=== PATIENT | male | born 2005 | race Caucasian/White ===

== ENCOUNTER 2025-08-23 06:07 | Observation (INO) ==
--- NOTE | 2025-08-23 06:46 | Emergency Department Note ---
Impression & Plan Hyperglycemia, Newly diagnosed diabetes ED Provider Note Provider: Marlon Lima MD CHIEF COMPLAINT: Referred due to high blood sugars HISTORY OF PRESENT ILLNESS: Patient is a 19-year-old gentleman otherwise healthy presenting here today referred by outpatient [facility] doctor for evaluation of his blood sugar. Patient presents with his mother. He states has been a little bit thirsty and peeing a little bit more frequently but denies significant fatigue or breathing issues or fever or chills. Denies abdominal pain or nausea or vomiting or chest pain. 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 Was called and looked in the portal and told that his blood sugar was significantly elevated. Denies a history of similar. Does not have a glucometer at home. 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 NECK: Trachea midline. ENT: Mucous membranes pink and moist. LUNGS: Airway patent. No retractions or tachypnea HEART: Regular rate and rhythm. No chest wall tenderness ABDOMEN: Soft and non-tender, without guarding or rebound. SKIN: Acyanotic, warm, dry, without rashes EXTREMITIES: Without swelling, tenderness or deformity NEUROLOGICAL: No focal deficits. No aphasia. No facial droop or slurred speech. Ambulatory. Patient's laboratory studies and imaging reviewed. Differential includes Infection, dehydration, metabolic abnormality, hypo/hyperglycemia, electrolyte disturbance, anemia, toxicologic, neurologic, as well as other pathologies. IMPRESSION/MEDICAL DECISION MAKING: Patient well-appearing in no distress. Not tachypneic. Vitals reassuring and denies other infectious symptoms. Does report some polyuria and polydipsia. Outpatient testing results reviewed with elevated hemoglobin 10.4 from yesterday as well as a one-time glucose of 548 and a urine showing significant glucose jetting as well as some ketones. Clinically he does not appear to be in DKA but will check labs for gap and acidosis. Given some IV fluid here. Electrolytes and renal function were checked. Patient without significant physical complaints. Maybe a little bit of weight loss on further questioning with the patient. He denies significant use of sugary drinks. Did not seem to have significant risk factors for type 2 diabetes and his BMI is under 30. Given his young age very likely could represent early presentation of a type I situation or mixed picture. Blood work here without leukocytosis or anemia. VBG obtained shows a pH of 7.34 with CO2 of 49. Does not seem significantly acidotic. Chemistries returned without significant electrolyte abnormalities or signs of renal dysfunction. Anion gap of 11 with a bicarb of 26. Not in DKA but does have some trends that way prickly with ketones noted in urine and some concentration here. No evidence of hepatitis. Discussed with the patient and mother. Seems again likely that this represents onset of a type I picture and while he is not in DKA certainly seems to need to be started on long-term control therapy. Will discuss with the hospitalist for observation here today so that diabetes education and set up of care and medications can be made. DIAGNOSIS: Hyperglycemia DISPOSITION: Hospitalist will evaluate Patient was agreeable with this plan. Past Med/Surg History Problem List (Updated 08/23/25 @ 08:32 by Marlon Lima M.D.) Newly diagnosed diabetes (Acute) Hyperglycemia (Acute) Medical History No significant medical problems Surgical History Myringotomy tube status History of adenectomy Hx of tonsillectomy Social History Smoking Status: Never smoker Preferred Language: Greek Feels Safe at Home: Yes Allergies Allergies Allergy/AdvReac Type Severity Reaction Status Date / Time prednisone AdvReac Severe Coughing/Worsening Unverified 09/11/20 10:43 SOB/Depression Home Meds Home Medications Medication Instructions Recorded Confirmed albuterol sulfate 2.5 mg/0.5 mL 0 mg inhalation Q4H PRN Wheezing 09/11/20 09/11/20 solution for nebulization albuterol sulfate 90 mcg/actuation 2 puff inhalation Q4H PRN Wheezing 09/11/20 09/11/20 aerosol inhaler beclomethasone dipropionate 80 2 spray intranasal QAM 09/11/20 09/11/20 mcg/actuation nasal HFA inhaler (QNASL) pediatric multivitamin no.76 1 tab PO QAM 09/11/20 09/11/20 (Flintstones Complete chewable tablet) pseudoephedrine-guaifenesin ER 60 1 tab PO Q12H PRN Congestion 09/11/20 09/11/20 mg-600 mg tablet,extend release 12hr (Mucinex D) Results & Data (ED) Vital Signs Vital Signs - 24 hr 08/23/25 06:11 08/23/25 06:52 08/23/25 08:22 Temperature 36.5 C Temperature Source Oral Pulse Rate 71 58 L Respiratory Rate 17 Respiratory Effort / Characteristics Non-Labored Spontaneous Respiratory Depth Normal Respiratory Pattern Regular Blood Pressure 138/80 Blood Pressure Mean 99 Pulse Oximetry 98 97 Oxygen Delivery Method Room Air Room Air Sepsis Recent Fever Within 48 Hours No Sepsis New/Unexplained Change in Mental Status N/A Sepsis Action Taken by Nursing No Action Required Laboratory Data 08/23/25 06:23 08/23/25 06:23 Lab Results 08/23/25 08/23/25 08/23/25 Range/Units 06:16 06:23 06:39 WBC 6.71 (4.8-10.8) K/ul RBC 6.21 H (4.70-6.10) M/uL Hgb 17.9 (14.0-18.0) g/dl POC Hgb (14.0-18.0) g/dl Hct 50.7 (42.0-52.0) % POC Hct (42-52) % MCV 81.6 (80.0-100.0) fL MCH 28.8 (25.0-34.0) pg MCHC 35.3 (32.0-36.0) g/dL RDW Std Deviation 36.2 L (36.4-46.3) fL RDW Coeff of [place] 12.4 (11.5-14.5) % Plt Count 263 (130-400) K/uL MPV 9.3 L (9.4-12.4) fL Immature Gran % (Auto) 0.3 % Neut % (Auto) 55.5 % Lymph % (Auto) 33.5 % Stewart % (Auto) 7.6 % Eos % (Auto) 2.4 % Baso % (Auto) 0.7 % Neut # (Auto) 3.72 (1.40-6.50) K/uL Lymph # (Auto) 2.25 (1.20-3.40) K/uL Stewart # (Auto) 0.51 (0.11-0.59) K/uL Eos # (Auto) 0.16 (0.00-0.50) K/uL Baso # (Auto) 0.05 (0.00-0.20) K/uL Immature Gran # (Auto) 0.02 (0.01-0.20) K/uL VBG pH 7.34 L (7.36-7.41) VBG pCO2 49 (38-50) mmHg VBG pO2 37 mmHg VBG HCO3 26 mmol/L VBG O2 Saturation 67.5 % VBG Base Excess 0 mEq/L POC Sodium (135-144) mmol/L Sodium 138 (136-145) mmol/L POC Potassium (3.3-5.0) mmol/L Potassium 3.5 (3.5-5.1) mmol/L POC Chloride (101-112) mmol/L Chloride 101 (98-107) mmol/L Carbon Dioxide 26 (21-32) mmol/L POC Total CO2 (24-31) mmol/L Anion Gap 11 (3-11) POC Anion Gap (16-25) mmol/L POC BUN (7-18) mg/dl BUN 13 (6-23) mg/dl Creatinine 0.87 (0.6-1.4) mg/dl POC Creatinine mg/dl Est Cr Clr Drug Dosing 145.6 ml/min eGFR 126.68 BUN/Creatinine Ratio 14.9 (10-20) Glucose 306 H* (70-99(Fasting)) mg/dl POC Glucose 269 H (70-99) mg/dl POC Glucose (other) (70-99) mg/dl Lactate 1.1 (0.4-2.0) mmol/L Calcium 10.4 H (8.6-10.3) mg/dl POC Ioniz Calcium Leslie mmol/l Magnesium 2.1 (1.7-2.4) mg/dl Total Bilirubin 0.4 (0.2-1.0) mg/dl AST 18 (13-39) U/L ALT 23 (7-52) U/L Alkaline Phosphatase 110 H (34-104) U/L Total Creatine Kinase 48 (30-223) U/L Total Protein 8.2 (6.0-8.3) gm/dl Albumin 4.8 (3.4-5.0) gm/dl Globulin 3.4 (2.5-4.0) gm/dl Albumin/Globulin Ratio 1.4 (0.9-2) TSH 1.982 (0.300-4.500) uIu/ml Urine Color Urine Appearance (Clear) Urine pH (4.5-7.5) Ur Specific [place] (1.000-1.030) Urine Protein (Negative) Urine Glucose (UA) (Negative) Urine Ketones (Negative) Urine Blood (Negative) Urine Nitrite (Negative) Urine Bilirubin (Negative) Urine Urobilinogen (Negative) Ur Leukocyte Esterase (Negative) Urine Comment 08/23/25 08/23/25 Range/Units 06:47 07:23 WBC (4.8-10.8) K/ul RBC (4.70-6.10) M/uL Hgb (14.0-18.0) g/dl POC Hgb 16.3 (14.0-18.0) g/dl Hct (42.0-52.0) % POC Hct 48 (42-52) % MCV (80.0-100.0) fL MCH (25.0-34.0) pg MCHC (32.0-36.0) g/dL RDW Std Deviation (36.4-46.3) fL RDW Coeff of [place] (11.5-14.5) % Plt Count (130-400) K/uL MPV (9.4-12.4) fL Immature Gran % (Auto) % Neut % (Auto) % Lymph % (Auto) % Stewart % (Auto) % Eos % (Auto) % Baso % (Auto) % Neut # (Auto) (1.40-6.50) K/uL Lymph # (Auto) (1.20-3.40) K/uL Stewart # (Auto) (0.11-0.59) K/uL Eos # (Auto) (0.00-0.50) K/uL Baso # (Auto) (0.00-0.20) K/uL Immature Gran # (Auto) (0.01-0.20) K/uL VBG pH (7.36-7.41) VBG pCO2 (38-50) mmHg VBG pO2 mmHg VBG HCO3 mmol/L VBG O2 Saturation % VBG Base Excess mEq/L POC Sodium 139 (135-144) mmol/L Sodium (136-145) mmol/L POC Potassium 3.8 (3.3-5.0) mmol/L Potassium (3.5-5.1) mmol/L POC Chloride 102 (101-112) mmol/L Chloride (98-107) mmol/L Carbon Dioxide (21-32) mmol/L POC Total CO2 24 (24-31) mmol/L Anion Gap (3-11) POC Anion Gap 19.0 (16-25) mmol/L POC BUN 14 (7-18) mg/dl BUN (6-23) mg/dl Creatinine (0.6-1.4) mg/dl POC Creatinine 0.9 mg/dl Est Cr Clr Drug Dosing ml/min eGFR BUN/Creatinine Ratio (10-20) Glucose (70-99(Fasting)) mg/dl POC Glucose (70-99) mg/dl POC Glucose (other) 309 H (70-99) mg/dl Lactate (0.4-2.0) mmol/L Calcium (8.6-10.3) mg/dl POC Ioniz Calcium Leslie 1.25 mmol/l Magnesium (1.7-2.4) mg/dl Total Bilirubin (0.2-1.0) mg/dl AST (13-39) U/L ALT (7-52) U/L Alkaline Phosphatase (34-104) U/L Total Creatine Kinase (30-223) U/L Total Protein (6.0-8.3) gm/dl Albumin (3.4-5.0) gm/dl Globulin (2.5-4.0) gm/dl Albumin/Globulin Ratio (0.9-2) TSH (0.300-4.500) uIu/ml Urine Color Yellow Urine Appearance Clear (Clear) Urine pH 5.5 (4.5-7.5) Ur Specific [place] > 1.045 H (1.000-1.030) Urine Protein Negative (Negative) Urine Glucose (UA) 2+ H (Negative) Urine Ketones 3+ H (Negative) Urine Blood Negative (Negative) Urine Nitrite Negative (Negative) Urine Bilirubin Negative (Negative) Urine Urobilinogen Negative (Negative) Ur Leukocyte Esterase Negative (Negative) Urine Comment Administered Medications Discontinued Medications Sodium Chloride (Nss) 1,000 mls @ 999 mls/hr IV .Q1H1M LAVERNE Stop: 08/23/25 07:30 Last Admin: 08/23/25 07:18 Dose: 999 mls/hr Documented By: [facility] Discharge Plan Visit Data Chief Complaint: Referred by Doctor Stated Complaint: HIGH BLOOD SUGAR, REF BY DOC ED Provider: Marlon Lima Discharge Problem: Hyperglycemia, Newly diagnosed diabetes Patient Disposition: Being Evaluated by Hospitalist Condition: Good Forms Stand Alone Forms: My [employer] Prescriptions Prescriptions: No Action pseudoephedrine-guaifenesin [Mucinex D] 60-600 mg Tablet Extended Release 12 Hr 1 tab PO Q12H PRN (Reason: Congestion) albuterol sulfate 90 mcg/actuation HFA aerosol inhaler 2 puff INHALATION Q4H PRN (Reason: Wheezing) albuterol sulfate 2.5 mg/0.5 mL Solution For Nebulization 0 mg INHALATION Q4H PRN (Reason: Wheezing) QNASL 80 mcg/actuation Hfa Aerosol Inhaler 2 spray INTRANASAL QAM Flintstones Complete Tablet,Chewable 1 tab PO QAM Referrals Referrals: Miriam Eubanks MD [Primary Care Provider] -
[2025-08-23 06:50] LABS: Base Excess VBG 0 mEq/L; HCO3 VBG 26 mmol/L; Oxygen Saturation VBG 67.5 %; PCO2 VBG 49 mmHg (38-50); PO2 VBG 37 mmHg; pH VBG 7.34 (7.36-7.41)
[2025-08-23 06:56] LABS: Hematocrit (blood only) 50.7 % (42.0-52.0); Hemoglobin 17.9 g/dl (14.0-18.0); Immature Granulocytes # (auto) 0.02 K/uL (0.01-0.20); Immature Granulocytes % (auto) 0.3 %; Mean Corpuscular Hemoglobin 28.8 pg (25.0-34.0); Mean Corpuscular Volume 81.6 fL (80.0-100.0); Platelet Count 263 K/uL (130-400); RDW Standard Deviation 36.2 fL (36.4-46.3); Red Blood Count 6.21 M/uL (4.70-6.10); White Blood Count 6.71 K/ul (4.8-10.8)
[2025-08-23] MEDS: SODIUM CHLORIDE 0.9% 1,000 ML IV SCH (07:18)
[2025-08-23 07:37] LABS: Alanine Aminotransferase 23.0 U/L (7-52); Albumin Globulin Ratio 1.4 (0.9-2); Albumin Level 4.8 gm/dl (3.4-5.0); Alkaline Phosphatase 110.0 U/L (34-104); Anion Gap 11.0 (3-11); Bilirubin,Total 0.4 mg/dl (0.2-1.0); Blood Urea Nitrogen 13.0 mg/dl (6-23); Calcium 10.4 mg/dl (8.6-10.3); Carbon Dioxide 26.0 mmol/L (21-32); Chloride 101.0 mmol/L (98-107); Creatine Kinase 48.0 U/L (30-223); Creatinine Clr Calc Pharmacy 145.6 ml/min; Globulin 3.4 gm/dl (2.5-4.0); Glucose 306.0 mg/dl (70-99(Fasting)); Magnesium 2.1 mg/dl (1.7-2.4); Potassium 3.5 mmol/L (3.5-5.1); Sodium 138.0 mmol/L (136-145); Total Protein 8.2 gm/dl (6.0-8.3)
[2025-08-23 07:43] LABS: Appearance Urine Clear (Clear); Glucose Urine UA 2+ (Negative)
[2025-08-23 07:48] LABS: Thyroid Stimulating Hormone 1.982 uIu/ml (0.300-4.500)
--- NOTE | 2025-08-23 08:28 | History & Physical Report ---
Date of Service August 23, 2025 Assessment & Plan (1) Hyperglycemia: (2) Newly diagnosed diabetes: Plan Patient is a 19-year-old male with no significant past medical history who presented to the ED accompanied by his mother after outpatient lab work performed yesterday revealed an elevated hemoglobin A1c of 10.4% and elevated BSG of 548. Hyperglycemia Newly diagnosed DM, likely type I Seen by PCP yesterday for CDL visit with c/o polydipsia, polyuria and recent weight loss. 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 Lab work ordered and revealed hemoglobin A1c 10.4%, nonfasting BSG 548, significant ketonuria plus glycosuria on UA and C-peptide level = 2. Presenting BSG today of 269. VBG and additional labs reviewed, no evidence of DKA on admission. S/p 1L NSS in the ED. + glycosuria, ketonuria on UA. Pancreatic autoantibody testing ordered and pending including SHARIFA 65, IA2, insulin and ZnT8. Appreciate DM educator consult. Appreciate glycemic pharmacy assistance with insulin management. DVT Prophylaxis: SCDs/TEDs, encourage ambulation Code Status: FULL CODE PCP: Miriam Eubanks MD Disposition: Observation in med/telemetry Patient seen in collaboration with Dr. Winston. Please see addendum. I spent a total of 55 minutes coordinating, documenting, and providing care for this patient excluding time spent in the performance of separately billed services or time spent by another provider/QHP. This included personally reviewing all current laboratories and imaging studies, medical reconciliation, outpatient chart review and discussion with specialists. This chart was completed in part utilizing Speech Voice Recognition Software. Grammatical errors, random word insertions, pronoun errors, and incomplete sentences are an occasional consequence of this system due to software limitati ons, ambient noise, and hardware issues. Any formal questions or concerns about the content, text, or information contained within the body of this dictation should be directly addressed to the provider for clarification. History of Present Illness Chief Complaint: Referred by PCP: elevated Hgb A1c, hyperglycemia Primary Care Provider: Miriam Eubanks MD Patient is a 19-year-old male with no significant past medical history who pre sented to the ED accompanied by his mother after outpatient lab work performed yesterday revealed an elevated hemoglobin A1c of 10.4% and elevated BSG of 548. History obtained from patient, patient's mother at bedside, discussion with ED provider and associated chart review. 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 Had been complaining of polydipsia, polyuria and recent weight loss of approximately 10lb over the past month or so. Workup revealed significant glycosuria and ketonuria on UA, hemoglobin A1c 10.4% and random BSG of 548. Denies any fevers, abdominal pain, diarrhea, dysuria, chest pain, congestion or SOB. Other than a distant cousin and ctiju-frjxm-[id number] grandfather on his maternal side, there is no other family history of DM type 1. No current home medications. No history of cigarette or vape pen use. Denies any alcohol use or recreational drug use. Allergies Allergy/AdvReac Type Severity Reaction Status Date / Time amoxicillin [From Augmentin] Allergy Rash Unverified 08/23/25 09:31 clavulanic acid Allergy Rash Unverified 08/23/25 09:31 [From Augmentin] prednisone AdvReac Severe Coughing/Worsening Unverified 09/11/20 10:43 SOB/Depression Home Medications Medication Instructions Recorded Confirmed Type No Known Home Medications 08/23/25 08/23/25 History glucagon 3 mg/actuation nasal 3 mg intranasal UD #2 ea 08/24/25 Rx spray (Baqsimi) insulin aspart U-100 100 unit/mL 1 sliding scale dose subcut 08/24/25 Rx subcutaneous cartridge (Novolog USEASDIRECTD #15 mL PenFill U-100 Insulin aspart) insulin glargine 100 unit/mL (3 8 unit (0.08 mL) subcut QAM #3 mL 08/24/25 Rx mL) subcutaneous pen (Lantus Solostar U-100 Insulin) pen needle, diabetic 32 gauge x #1,200 ea 08/24/25 Rx /32" (Pen Needle) Past Med/Surg History Problem List Newly diagnosed diabetes (Acute) Hyperglycemia (Acute) Medical History No significant medical problems Surgical History Myringotomy tube status History of adenectomy Hx of tonsillectomy Social History Smoking Status: Never smoker Hx Alcohol Use: No Hx Substance Use: No Preferred Language: Khmer Communication Ability: Effective Qa Engineer Required: No Beliefs That Will Affect Care: None Current Living Situation: Family Feels Safe at Home: Yes Safety Concerns: Feels Safe At This Time Review of Systems Review of Systems: At least ten systems reviewed and negative, except as noted in the HPI. Physical Exam Physical Exam: General: WD/WN, NAD, laying down in bed, A&Ox3, patient's mother at bedside HEENT: Normocephalic, atraumatic, external ear and nose normal, moist mucous membranes Respiratory: Normal respiratory effort, CTAB Cardiovascular: RRR, normal peripheral pulses, no BLE edema Abdomen/GI: Normal bowel sounds, soft, nontender to palpation in all quadrants Extremities/Musculoskeletal: No cyanosis or clubbing, extremities motor strength intact, moves all extremities Neurologic: No overt focal deficits, CN's II-XI not formally tested but appear grossly intact bilaterally Results & Data Results & Data Vital Signs (Past 12 Hours) Vital Signs Temp Pulse Resp BP Pulse Ox O2 Del Method 08/23/25 08:22 58 L 08/23/25 06:52 97 Room Air 08/23/25 06:11 36.5 C 71 17 138/80 98 Room Air Laboratory Results Short CBC 08/23/25 Range/Units 06:23 WBC 6.71 (4.8-10.8) K/ul Hgb 17.9 (14.0-18.0) g/dl Hct 50.7 (42.0-52.0) % Plt Count 263 (130-400) K/uL BMP 08/23/25 06:23 Sodium 138 Potassium 3.5 Chloride 101 Carbon Dioxide 26 BUN 13 Creatinine 0.87 Glucose 306 H* Calcium 10.4 H Cardiac Enzymes 08/23/25 Range/Units 06:23 Total Creatine Kinase 48 (30-223) U/L Liver Function 08/23/25 Range/Units 06:23 Total Bilirubin 0.4 (0.2-1.0) mg/dl AST 18 (13-39) U/L ALT 23 (7-52) U/L Alkaline Phosphatase 110 H (34-104) U/L Albumin 4.8 (3.4-5.0) gm/dl Urine 08/23/25 Range/Units 07:23 Urine Color Yellow Urine Appearance Clear (Clear) Urine pH 5.5 (4.5-7.5) Ur Specific [place] > 1.045 H (1.000-1.030) Urine Protein Negative (Negative) Urine Glucose (UA) 2+ H (Negative) Medications Administered Discontinued Medications Sodium Chloride (Nss) 1,000 mls @ 999 mls/hr IV .Q1H1M LAVERNE Stop: 08/23/25 07:30 Last Admin: 08/23/25 07:18 Dose: 999 mls/hr Documented By: [facility] Supervising Physician Co-Signing Physician Notes Attending Addendum: Case reviewed with the advanced practitioner. I have personally performed a history and physical examination on the patient. I have reviewed the advanced practitioner's documentation on the date of service referenced in note, and I agree with, and take responsibility for the plan of care. please refer to her notes for full details patient seen and examined, records reviewed by myself as well newly diagnosed DM Start insulin regimen DM educator no signs of infection other diagnoses and plan of care as per advanced practitioner's notes I spent a total of 35 minutes coordinating, documenting, and providing care for this patient, excluding time spent in the performance of separately billed services or time spent by another provider/QHP. Sridhar Winston MD
[2025-08-23] MEDS ORDERED: GLUCAGON FOR INJ 1 MG VIAL SQ PRN (08:29)
[2025-08-23] MEDS ORDERED: CARBOHYDRATES FOR HYPOGLYCEMIA PO PRN (08:29)
[2025-08-23] MEDS ORDERED: PHARMACY GLYCEMIC MGMT CONSULT PRN (08:29)
[2025-08-23] MEDS ORDERED: DEXTROSE 50% 50 ML SYRINGE IV PRN (08:29)
[2025-08-23] MEDS ORDERED: GLUCOSE 10 TAB/TUBE PO PRN (08:29)
[2025-08-23] MEDS ORDERED: GLUCOSE 40% GEL 15 GM TUBE PO PRN (08:29)
[2025-08-23] MEDS ORDERED: POLYETHYLENE (MIRALAX) 17 GM PACK PO PRN (09:45)
[2025-08-23] MEDS ORDERED: MAGNESIUM HYDROXIDE SUSP 30 ML UDC PO PRN (09:45)
[2025-08-23] MEDS ORDERED: ONDANSETRON INJ 2 MG/ML 2 ML VIAL IV PRN (09:45)
[2025-08-23] MEDS ORDERED: ACETAMINOPHEN 325 MG TAB PO PRN (09:45)
[2025-08-23 09:46] LABS: Hemoglobin A1C 10.8 % (4.5-5.6)
[2025-08-23] MEDS: INSULIN ASPART PER UNIT CHARGE SC SCH (10:43)
--- NOTE | 2025-08-23 13:57 | Pharmacy Report ---
Pharmacy Glycemic Short Note 2 - Date of Service August 23, 2025 - Glycemic Short BSG Results (Last 24 hours): 08/23/25 08/23/25 08/23/25 06:16 06:23 06:47 Glucose 306 H* POC Glucose 269 H POC Glucose (other) 309 H 08/23/25 08/23/25 09:43 11:23 Glucose POC Glucose 234 H 314 H* POC Glucose (other) OUTPATIENT ANTIDIABETIC REGIMEN: * N/A HbA1c: 10.8% on 08/23/25 ASSESSMENT: * Renny is a 19 year old male who presented to the ED today after being referred by an outpatient provider for evaluation of his blood sugar. Outpatient testing reportedly revealed a HbA1c of 10.4% and a BSG of 548. Patient reported polydipsia, polyuria, and recent weight loss of ~10lbs. * BSG on arrival today was 269mg/dL. No evidence of DKA on admission (AG 11, CO2 26). Pancreatic autoantibodies have been ordered and are pending. * Since he is a newly diagnosed, possible type 1 diabetic, will add insulin conservatively. Will target 0.2-0.6 units of insulin/kg total/day initially and adjust as needed. * Lantus 10units SQ x 1 was ordered for today, and a weight based bolus insulin regimen with a stress of 2 was started. PLAN: * Basal insulin * Lantus 10 units SQ X 1. Further dose will be determined with additional BSGs. * Bolus insulin * NovoLog per scale ACHS or Q6hrs while NPO * Goal Range: Low 110 mg/dL - High 160 mg/dL * Correction Factor: 25 mg/dL/unit * Nutritional / Prandial insulin per carb ratio of 1 unit per 9 grams CHO consumed
[2025-08-23] MEDS: LANTUS PER UNIT CHARGE SC ONE (17:17)
[2025-08-24 07:47] VITALS: RESP 18; TEMP 98.1
[2025-08-24 07:50] LABS: Hematocrit (blood only) 45.2 % (42.0-52.0); Hemoglobin 15.6 g/dl (14.0-18.0); Mean Corpuscular Hemoglobin 28.6 pg (25.0-34.0); Mean Corpuscular Volume 82.9 fL (80.0-100.0); Platelet Count 224 K/uL (130-400); RDW Standard Deviation 37.9 fL (36.4-46.3); Red Blood Count 5.45 M/uL (4.70-6.10); White Blood Count 6.73 K/ul (4.8-10.8)
[2025-08-24 08:11] LABS: Alanine Aminotransferase 18.0 U/L (7-52); Albumin Globulin Ratio 1.4 (0.9-2); Albumin Level 3.8 gm/dl (3.4-5.0); Alkaline Phosphatase 73.0 U/L (34-104); Anion Gap 9.0 (3-11); Bilirubin,Total 0.6 mg/dl (0.2-1.0); Blood Urea Nitrogen 13.0 mg/dl (6-23); Calcium 9.2 mg/dl (8.6-10.3); Carbon Dioxide 25.0 mmol/L (21-32); Chloride 105.0 mmol/L (98-107); Creatinine Clr Calc Pharmacy 138.5 ml/min; Globulin 2.7 gm/dl (2.5-4.0); Glucose 226.0 mg/dl (70-99(Fasting)); Magnesium 1.8 mg/dl (1.7-2.4); Potassium 4.1 mmol/L (3.5-5.1); Sodium 139.0 mmol/L (136-145); Total Protein 6.5 gm/dl (6.0-8.3)
[2025-08-24] MEDS: LANTUS PER UNIT CHARGE SC SCH (08:30)
--- NOTE | 2025-08-24 09:05 | Pharmacy Report ---
Pharmacy Glycemic Short Note 2 - Date of Service August 24, 2025 - Glycemic Short BSG Results (Last 24 hours): 08/23/25 08/23/25 08/23/25 09:43 11:23 17:07 Glucose POC Glucose 234 H 314 H* 84 08/23/25 08/24/25 08/24/25 20:11 00:05 06:54 Glucose 226 H POC Glucose 182 H 168 H 08/24/25 08:02 Glucose POC Glucose 186 H OUTPATIENT ANTIDIABETIC REGIMEN: * N/A HbA1c: 10.8% on 08/23/25 ASSESSMENT: 08/24 * Patient received total of 17 units of insulin yesterday, all of which were correctional insulin. Basal dose was held per provider likely due to BSGs trending down at dinner to 84 mg/dL * Fasting BSG 186 mg/dL - will plan to initiate low dose basal insulin Lantus 8 units once daily in AM * Will continue with looser novolog parameters this AM since adding on basal 08/23 * Renny is a 19 year old male who presented to the ED today after being referred by an outpatient provider for evaluation of his blood sugar. Outpatient testing reportedly revealed a HbA1c of 10.4% and a BSG of 548. Patient reported polydipsia, polyuria, and recent weight loss of ~10lbs. * BSG on arrival today was 269mg/dL. No evidence of DKA on admission (AG 11, CO2 26). Pancreatic autoantibodies have been ordered and are pending. * Since he is a newly diagnosed, possible type 1 diabetic, will add insulin conservatively. Will target 0.2-0.6 units of insulin/kg total/day initially and adjust as needed. * Lantus 10units SQ x 1 was ordered for today, and a weight based bolus insulin regimen with a stress of 2 was started. PLAN: * Basal insulin * Lantus 8 units once daily * Bolus insulin * NovoLog per scale ACHS or Q6hrs while NPO * Goal Range: Low 110 mg/dL - High 180 mg/dL * Correction Factor: 35 mg/dL/unit * Nutritional / Prandial insulin per carb ratio of 1 unit per 12 grams CHO consumed
--- NOTE | 2025-08-24 10:48 | Hospitalist Progress Note ---
Date of Service August 24, 2025 Assessment & Plan (1) Hyperglycemia: (2) Newly diagnosed diabetes: Plan Patient is a 19-year-old male with no significant past medical history who presented to the ED accompanied by his mother after outpatient lab work performed yesterday revealed an elevated hemoglobin A1c of 10.4% and elevated BSG of 548. 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 Lab work ordered and revealed hemoglobin A1c 10.4%, nonfasting BSG 548, significant ketonuria plus glycosuria on UA and C-peptide level = 2. Presenting BSG today of 269. VBG and additional labs reviewed, no evidence of DKA on admission. S/p 1L NSS in the ED. + glycosuria, ketonuria on UA. Pancreatic autoantibody testing ordered and pending including SHARIFA 65, IA2, insulin and ZnT8. Appreciate DM educator consult. Appreciate glycemic pharmacy assistance with insulin management. 08/26 blood glucose improved with Insulin evaluated by DM educator discharge plan: Lantus 8 units AM Novolog Sliding Scale Dexacom ordered please follow up: SHARIFA 65, IA2, insulin and ZnT8 plan of care discussed with patient and his mother in detail all questions answered they are understanding, agreeable, comfortable with the plan of care Admission and Anticipated Discharge Date Admission Date: August 23, 2025 Subjective resting in bed, comfortable feels fine overall no chest pain, dyspnea, palpitations, dizziness no fever/chills no abdominal pain no other symptoms Review of Systems Review of Systems: all noted and negative except for above Physical Exam Physical Exam: General- oriented x 3, not in distress, speaks in sentences with no effort or accessory muscle use Eyes- anicteric Neck- no JVD Lungs- clear breath sounds bilaterally, no rales/wheezes Heart- normal rate, regular rhythm; no murmurs Abdomen- normal bowel sounds, nondistended, soft, nontender Extremities- no pretibial edema, no calf tenderness Neuro- alert, oriented x 3; no gross focal neurologic deficits Skin- warm & dry Results & Data Results & Data Vital Signs (Past 12 Hours) Vital Signs Temp Pulse Pulse Resp BP Pulse Ox O2 Del Method 08/24/25 07:46 36.7 C 77 18 146/79 H 96 Room Air 08/24/25 06:45 65 08/24/25 02:41 36.6 C 83 16 123/74 96 Room Air 08/23/25 23:13 36.9 C 62 19 148/74 H 99 Room Air
[2025-08-24 12:08] VITALS: BP 134/80; PULSE 92; O2SAT 97
--- NOTE | 2025-08-26 14:38 | Discharge Summary ---
Discharge Summary Date of Service August 26, 2025 date of service 08/24 Principal Dx & Hospital Course #1 = Principal Diagnosis (1) Hyperglycemia: (2) Newly diagnosed diabetes: Plan Patient is a 19-year-old male with no significant past medical history who presented to the ED accompanied by his mother after outpatient lab work performed yesterday revealed an elevated hemoglobin A1c of 10.4% and elevated BSG of 548. 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 Lab work ordered and revealed hemoglobin A1c 10.4%, nonfasting BSG 548, significant ketonuria plus glycosuria on UA and C-peptide level = 2. Presenting BSG today of 269. VBG and additional labs reviewed, no evidence of DKA on admission. S/p 1L NSS in the ED. + glycosuria, ketonuria on UA. Pancreatic autoantibody testing ordered and pending including SHARIFA 65, IA2, insulin and ZnT8. Appreciate DM educator consult. Appreciate glycemic pharmacy assistance with insulin management. 08/26 a1c 10.8 blood glucose improved with Insulin evaluated by DM educator, provided instructions re: insulin , etc discharge plan: Lantus 8 units AM Novolog Sliding Scale: * Goal Range: Low 110 mg/dL - High 180 mg/dL * Correction Factor: 35 mg/dL/unit Dexacom ordered please follow up: SHARIFA 65, IA2, insulin and ZnT8 plan of care discussed with patient and his mother in detail all questions answered they are understanding, agreeable, comfortable with the plan of care Notes For Next Care Provider Medication Changes From Visit per med rec Admission HPI Per Admitting Provider Patient is a 19-year-old male with no significant past medical history who presented to the ED accompanied by his mother after outpatient lab work performed yesterday revealed an elevated hemoglobin A1c of 10.4% and elevated BSG of 548. History obtained from patient, patient's mother at bedside, discussion with ED provider and associated chart review. 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 Had been complaining of polydipsia, polyuria and recent weight loss of approximately 10lb over the past month or so. Workup revealed significant glycosuria and ketonuria on UA, hemoglobin A1c 10.4% and random BSG of 548. Denies any fevers, abdominal pain, diarrhea, dysuria, chest pain, congestion or SOB. Other than a distant cousin and [id number] grandfather on his maternal side, there is no other family history of DM type 1. No current home medications. No history of cigarette or vape pen use. Denies any alcohol use or recreational drug use. Admission Exam Per Admitting Provider General: WD/WN, NAD, laying down in bed, A&Ox3, patient's mother at bedside HEENT: Normocephalic, atraumatic, external ear and nose normal, moist mucous membranes Respiratory: Normal respiratory effort, CTAB Cardiovascular: RRR, normal peripheral pulses, no BLE edema Abdomen/GI: Normal bowel sounds, soft, nontender to palpation in all quadrants Extremities/Musculoskeletal: No cyanosis or clubbing, extremities motor strength intact, moves all extremities Neurologic: No overt focal deficits, CN's II-XI not formally tested but appear grossly intact bilaterally Discharge Exam General- oriented x 3, not in distress, speaks in sentences with no effort or accessory muscle use Eyes- anicteric Neck- no JVD Lungs- clear breath sounds bilaterally, no rales/wheezes Heart- normal rate, regular rhythm; no murmurs Abdomen- normal bowel sounds, nondistended, soft, nontender Extremities- no pretibial edema, no calf tenderness Neuro- alert, oriented x 3; no gross focal neurologic deficits Skin- warm & dry Updated Medication List Medication Instructions Recorded Confirmed Type No Known Home Medications 08/23/25 08/23/25 History glucagon 3 mg/actuation nasal 3 mg intranasal UD #2 ea 08/24/25 Rx spray (Baqsimi) insulin aspart U-100 100 unit/mL 1 sliding scale dose subcut 08/24/25 Rx subcutaneous cartridge (Novolog USEASDIRECTD #15 mL PenFill U-100 Insulin aspart) insulin glargine 100 unit/mL (3 8 unit (0.08 mL) subcut QAM #3 mL 08/24/25 Rx mL) subcutaneous pen (Lantus Solostar U-100 Insulin) pen needle, diabetic 32 gauge x #1,200 ea 08/24/25 Rx 5/32" (Pen Needle) Hospital Stay Data Consultations 08/23/25 08:19 ED Decision to Admit Stat Pending Results Patient Have Any Pending Studies at Discharge: Yes Discharge Instructions Given to Patient (Per Discharging Provider) PLEASE REFER TO YOUR NEW MEDICATION LIST AND FOLLOW INSTRUCTIONS CAREFULLY. YOUR NEW MEDICATIONS INCLUDE: Lantus- long acting insulin 8 units daily Novolog- rapid acting insulin for sliding scale as follows: --Goal BSG Range: Low 90 mg/dL, High 150 mg/dL --Correction Factor: 35 mg/dL/unit --Carbohydrate ratio = 12 g/unit PLEASE CALL YOUR PRIMARY CARE PHYSICIAN OR RETURN TO ED IF WITH WORSENING OF SYMPTOMS, INCLUDING weakness, dizziness, tremors, fever/chills, etc FOLLOW UP WITH PRIMARY CARE PHYSICIAN OUTLINED ABOVE. Total Time Total Time Spent Total Time Spent (In Minutes): 40 minutes
--- NOTE | 2025-08-27 05:05 | Electrocardiogram Report ---
Test Reason : Blood Pressure : */* mmHG Vent. Rate : 83 BPM Atrial Rate : 83 BPM P-R Int : 144 ms QRS Dur : 90 ms QT Int : 340 ms P-R-T Axes : 63 62 51 degrees QTcB Int : 399 ms Normal sinus rhythm Normal ECG When compared with ECG of 10-May-2024 11:27, No significant change was found Confirmed by Baltazar Torres ([id number]) on 08/27/2025 5:05:05 AM Referred By: Jarvis Payne Confirmed By: Baltazar Torres
== END 2025-08-24 12:30 | disposition home or self-care (01) ==
LOC: ED 06:07 → EDINP 06:07 → 2W 09:45